=== PATIENT | male | born 1950 | race Caucasian/White ===

== ENCOUNTER 2023-07-31 08:29 | Outpatient (RCR) | payer MEDICARE, SELFPAY | END 2023-07-31 23:59 | disposition home or self-care (01) | LOC: CRHB 08:29 | PROVIDERS: ATTENDING PHYSICIAN Internal Medicine Cardiovascular Disease | DX: I25.10 Atherosclerotic heart disease of native coronary artery without angina pectoris (principal); Z95.1 Presence of aortocoronary bypass graft; I42.9 Cardiomyopathy, unspecified; I50.20 Unspecified systolic (congestive) heart failure | CPT/HCPCS: G0422; G0423 ==

== ENCOUNTER 2023-07-31 09:44 | Emergency (ER) | payer MEDICARE, SELFPAY ==
[2023-07-31 09:57] VITALS: BP 134/91
--- NOTE | 2023-07-31 11:49 | ED.GENMED ---
History of Present Illness
General
Chief Complaint: Nose Bleed
Source: patient and family (Daughter)
Exam Limitations: none
Time Seen by Provider: 07/31/23 10:52
Nursing documentation reviewed up to this point in time: agreed with
Travel History
Have you had any contact with someone who has COVID-19?: No
Do you have any symptoms of coronavirus? Fever > 100 degrees, chills, cough, shortness of breath, sore throat, loss of taste or smell, muscle aches, or headache?: No
History of Present Illness
History of Present Illness:
73-year-old male with a past medical history of hypertension, hyperlipidemia, CHF, CAD status post CABG, prior stroke with left-sided weakness who presents to the emergency department for evaluation of epistaxis. Patient reports he was at cardiac
rehab today and he bent over to put something in the trash can and started having nosebleeding. Patient says that he was bleeding primarily out of the left nare. He says that 2 nurses from the cardiac rehab center helped him by applying pressure
and giving him an ice pack to apply to his nose. He says that bleeding continued for about 30 to 45 minutes but now has subsided. He says he did not have any significant posterior bleeding did not swallow a significant amount of blood. He did not
have any bleeding out of the right nare. He did not have any trauma to the nose. He is on Eliquis.
Past History
Past History
ED Past Surgical History: None
Patient has exhibited threatening behavior?: No
PSI?: No
Review of Systems
Review of Systems
All Other Systems: ROS reviewed and negative except as documented in HPI and ROS
EENT: Reports other (Nosebleed)
Respiratory: Denies cough or trouble breathing
Phy Exam
Physical Exam
Physical Exam:
General: Awake, alert, oriented x3; no acute distress
Head: Normocephalic, atraumatic
Eyes: Conjunctiva normal
Nose: Dried blood around the left nare, left nasal septum slightly dry with one small crack/abrasion suspect likely source of bleeding; right nasal septum slightly dry but no signs of bleeding or abrasions
Throat: Airway intact, handling secretions
Neck: Trachea midline
Lungs: Breathing comfortably no distress
Heart: Regular rate
Neuro: Awake and alert
Skin: no rash
Extremities: Warm and well-perfused
Scores
Heart Failure Risk
Heart Failure Risk Score: Not Applicable
Heart Score for Chest Pain Patients
STEMI patient?: Not applicable
Withdrawal Assessment of Alcohol
Withdrawal Assessment Completed?: Not applicable
Course
Vital Signs
Initial and Last Documented VS:
Initial Vital Signs
Temp Pulse Resp BP Pulse Ox
36.8 C 53 16 134/91 98
07/31/23 09:57 07/31/23 09:57 07/31/23 09:57 07/31/23 09:57 07/31/23 09:57
Last Documented Vital Signs
Temp Pulse Resp BP Pulse Ox
36.8 C 53 16 134/91 98
07/31/23 09:57 07/31/23 09:57 07/31/23 09:57 07/31/23 09:57 07/31/23 09:57
Procedures
Nosebleed
Drug treatment: none
Treatment: Silver nitrate cautery
Post treatment bleeding: none- good control
MDM/Problems Addressed
Differential Diagnosis Includes:
Anterior epistaxis�secondary to minor trauma versus dry mucosa; posterior epistaxis clinically unlikely with clearly identifiable source on exam, bleeding out of one nare only and no significant posterior bleeding, bleeding controlled with direct
pressure
MDM/Problems Addressed:
73-year-old male on Eliquis presents for epistaxis today. He says that his nose was bleeding out of the left nare only for about 30 to 45 minutes and resolved with pressure and ice pack. He is hemostatic. Vitals normal. On exam he has dry nasal
mucosa with a small crack/abrasion on the left nasal septum that I suspect is the likely source of the bleeding. I performed cautery with silver nitrate to prevent any rebleeding. Will monitor for short period of time after cauterization to ensure
no rebleeding. Instructed patient on how to hold pressure should bleeding recur. Advised to use Vaseline to keep mucosa moist and discussed potentially adding humidifier at home. Will have him follow-up with primary care physician. Spoke about
return precautions all questions answered.
Chronic conditions affecting care:
History of coronary disease and stroke on Eliquis�complicated at this time
*Pulse Oximetry
Patient hypoxic: no
*Critical Care Note
Total Time (30-74mins, 75-104mins- exclusive of procedures): Not Applicable
Data Reviewed
Source: patient and family (Daughter)
ED Attending Note
-
Portions of this chart may have been created with voice recognition software.� Occasional wrong word or��sound alike� substitutions may have occurred due to the inherent limitations of voice recognition software.
Discharge Plan
Departure
Patient Disposition: Home (Routine Discharge)
Date of Disposition: 07/31/23
Time of Disposition: 11:55
Patient with high blood pressure during this ER visit?: No
Discharge Problem:
Acute anterior epistaxis
Instructions: Nosebleeds (DC)
Prescriptions:
No Action
spironolactone 25 mg Tablet
25 mg PO DAILY
psyllium Packet
1 packet PO DAILY
pantoprazole 40 mg tablet,delayed release (DR/EC)
40 mg PO DAILY
Rx Instructions:
Please note increased dose
multivitamin with folic acid [Tab-A-Brenda] 400 mcg tablet
1 tab PO DAILY
apixaban 5 mg tablet
5 mg PO BID
Patient Comments:
patient recieved samples on 04/27/23
sacubitril-valsartan 49-51 mg tablet
1 tab PO BID
amiodarone 200 mg tablet
200 mg PO BID 30 Days Qty: 60 0RF
acetaminophen 325 mg Tablet
650 mg PO Q6HPRN PRN (Reason: mild pain,headache) Qty: 0 0RF
metoprolol succinate 50 mg Tablet Extended Release 24 Hr
75 mg PO DAILY Qty: 90 2RF
aspirin [Children's Aspirin] 81 mg Tablet,Chewable
81 mg PO DAILY Qty: 0 0RF
amiodarone 200 mg tablet
200 mg PO DAILY Qty: 30 0RF
Rx Instructions:
Start 30 days after discharge
Farxiga 10 mg tablet
10 mg PO DAILY Qty: 30 1RF
atorvastatin 80 mg Tablet
80 mg PO QPM Qty: 90 0RF
Referrals:
Gregor Jensen DO [Family Provider] - Call in 1-3 days for appt
Prasanna Abbott MD [Active] - As needed (ENT physician)
Activity Restrictions/Additional Instructions:
Thank you for visiting the Emergency Department at [facility].
1. Please schedule a follow up appointment as directed. Call first thing tomorrow morning to make an appointment.
2. If indicated, please take your medications as instructed and indicated on discharge paperwork.
3. If any of your symptoms do not improve, or persist, or become more severe within 6-12 hours, please return to the emergency department for further care.
4. Please return to the emergency department if you develop a headache, neck pain/stiffness, fever greater than 100.4F, chest pain, shortness of breath, persistent nausea, vomiting, slurred speech, difficulty walking, numbness/tingling, weakness,
signs of infection or any other symptoms that are worrisome to you.
Please call [phone] if you have any questions.
Interventions
Interventions:
*Risk Screen - Suicide Last Done: 07/31/23 12:33
*General Assessment Last Done: 07/31/23 12:33
*Neglect/Abuse Screening Last Done: 07/31/23 12:33
*Nursing Disposition Last Done: 07/31/23 12:33
ED-EENT Assessment Last Done: 07/31/23 11:00
Discharge Date and Time
Discharge Date/Time: 07/31/23 12:34
== END 2023-07-31 12:34 | disposition home or self-care (01) ==
LOC: EMR 09:44
PROVIDERS: EMERGENCY PHYSICIAN Emergency Medicine; FAMILY PHYSICIAN Family Medicine; OTHER PHYSICIAN Internal Medicine Cardiovascular Disease
DX: R04.0 Epistaxis (principal); I11.0 Hypertensive heart disease with heart failure; I50.9 Heart failure, unspecified; E78.5 Hyperlipidemia, unspecified; I25.10 Atherosclerotic heart disease of native coronary artery without angina pectoris; I69.354 Hemiplegia and hemiparesis following cerebral infarction affecting left non-dominant side; I42.9 Cardiomyopathy, unspecified; I45.10 Unspecified right bundle-branch block; M19.90 Unspecified osteoarthritis, unspecified site; Z79.01 Long term (current) use of anticoagulants; Z95.1 Presence of aortocoronary bypass graft
CPT/HCPCS: 99283; 30901

== ENCOUNTER 2023-08-31 08:29 | Outpatient (RCR) | payer MEDICARE, SELFPAY | END 2023-08-31 23:59 | disposition home or self-care (01) | LOC: CRHB 08:29 | PROVIDERS: ATTENDING PHYSICIAN Internal Medicine Cardiovascular Disease | DX: I25.10 Atherosclerotic heart disease of native coronary artery without angina pectoris (principal); Z95.1 Presence of aortocoronary bypass graft | CPT/HCPCS: G0422; G0423 ==

== ENCOUNTER → 2023-09-03 11:00 | Outpatient (REF) | payer MEDICARE, SELFPAY | LOC: DHCBC HW 11:00 | PROVIDERS: ATTENDING PHYSICIAN Internal Medicine Cardiovascular Disease; FAMILY PHYSICIAN Family Medicine | DX: I25.5 Ischemic cardiomyopathy (principal) | CPT/HCPCS: 93306 ==

== ENCOUNTER 2023-10-02 08:16 | Outpatient (RCR) | payer MEDICARE, SELFPAY | END 2023-10-02 23:59 | disposition home or self-care (01) | LOC: CRHB 08:16 | PROVIDERS: ATTENDING PHYSICIAN Internal Medicine Cardiovascular Disease | DX: Z95.1 Presence of aortocoronary bypass graft (principal) | CPT/HCPCS: G0422; G0423 ==

== ENCOUNTER 2023-10-07 08:21 | Outpatient (RCR) | payer MEDICARE, SELFPAY | END 2023-10-07 23:59 | disposition home or self-care (01) | LOC: CRHB 08:21 | PROVIDERS: ATTENDING PHYSICIAN Internal Medicine Cardiovascular Disease; FAMILY PHYSICIAN Family Medicine | DX: I25.10 Atherosclerotic heart disease of native coronary artery without angina pectoris (principal); Z95.1 Presence of aortocoronary bypass graft | CPT/HCPCS: G0422; G0423 ==